=== PATIENT | female | born 2000 | race Caucasian/White ===

== ENCOUNTER 2019-03-05 15:01 | Emergency (ER) | payer BC ==
[~2019-03-05] VITALS: Ht 167.6 cm; Wt 65.9 kg
[2019-03-05 15:50] VITALS: Ht 167.6 cm; Wt 65.9 kg
[2019-03-05] MEDS ORDERED: KEFLEX500 MG PO (19:21)
[2019-03-05] MEDS ORDERED: ALBUTEROL SULF8.5 GM INH (19:21)
[2019-03-05 20:01] VITALS: BP 97/63
== END 2019-03-05 20:11 | disposition home or self-care (01) ==
LOC: D.ER 15:01
DX: J45.909 Unspecified asthma, uncomplicated (principal)